=== PATIENT | female | born 1965 | race Caucasian/White ===

== ENCOUNTER 2016-11-06 16:21 | Emergency (ER) | payer MEDICAID ==
[2016-11-06 16:28] VITALS: BP 159/84; PULSE 107; RESP 16; O2SAT 99
[2016-11-06 17:30] LABS: BASO % 0.2 % (0.0-2.0); EOS # 0.1 K/uL (0.0-0.7); EOS % 0.9 % (0.0-4.0); HEMATOCRIT 36.9 % (34.0-47.0); LYMPH # 1.1 K/uL (1.0-4.3); LYMPH % 8.8 % (20.0-40.0); MEAN CELL VOLUME 76.9 fl (81.0-99.0); MEAN CORPUSCULAR HEMOGLOBIN 24.4 pg (27.0-31.0); MEAN CORPUSCULAR HGB CONC 31.7 g/dL (33.0-37.0); MEAN PLATELET VOLUME 7.8 fl (7.2-11.7); MONO # 0.7 K/uL (0.0-0.8); MONO % 5.9 % (0.0-10.0); NEUT # 10.6 K/uL (1.8-7.0); NEUT % 84.2 % (50.0-75.0); PLATELET COUNT 342 K/uL (130-400); WHITE BLOOD COUNT 12.6 K/uL (4.8-10.8)
[2016-11-06 17:42] LABS: ALB/GLOB RATIO 1.2 (1.0-2.1); ALKALINE PHOSPHATASE 79 U/L (38-126); ALT/SGPT 45 U/L (9-52); AST/SGOT 23 U/L (14-36); BILIRUBIN,TOTAL 0.4 mg/dl (0.2-1.3); BLOOD UREA NITROGEN 20 mg/dl (7-17); CALCIUM 8.9 mg/dL (8.4-10.2); CARBON DIOXIDE 21 mmol/L (22-30); CHLORIDE 106 mmol/L (98-107); GFR AFRICAN-AMERICAN > 60; GLUCOSE,RANDOM 140 mg/dL (65-105); MAGNESIUM 1.7 MG/DL (1.6-2.3); PHOSPHOROUS 3.5 mg/dl (2.5-4.5); POTASSIUM 3.8 MMOL/L (3.6-5.0); SODIUM 139 mmol/l (132-148); TOTAL PROTEIN 7.4 G/DL (6.3-8.2); URIC ACID 3.5 mg/Dl (2.2-7.5)
--- NOTE | 2016-11-06 17:46 | ED PDOC ---
Upper Extremity Pain/Injury Time Seen by Provider: 11/06/16 16:31 Chief Complaint (Nursing): Upper Extremity Problem/Injury Chief Complaint (Provider): Hand swelling History Per: Patient History/Exam Limitations: no limitations Onset/Duration Of Symptoms: Days Current Symptoms Are (Timing): Still Present Additional History Per: Patient Additional Complaint(s): The pt is a 51yo female, pmhx of 2x , gastritis, presents to the ED for evaluation of hand swelling for the past 5 days. Pt reports symptoms started with aching in right hand and also swelling. Pt reports she also felt malaise and fatigue since then. She reports this morning, noticing selling to left hand and left knee, prompting her visit to the ED. 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 She reports taking 800 mg Motrin for pain with minimal relief. She also reports a tactile fever and mild headache and jaw pain as well. Pt denies any other medical complaints. PCP: Dr. Alissa Barksdale Past Medical History Reviewed: Historical Data, Nursing Documentation, Vital Signs Vital Signs: Last Vital Signs Temp 99.0 F 11/06/16 16:25 Pulse 107 H 11/06/16 16:25 Resp 16 11/06/16 16:25 BP 159/84 H 11/06/16 16:25 Pulse Ox 99 11/06/16 16:25 - Medical History PMH: Gastritis - Surgical History Surgical History: (2) - Family History Family History: States: Unknown Family Hx - Social History Current smoker - smoking cessation education provided: No Alcohol: None Drugs: Denies - Immunization History Hx Tetanus Toxoid Vaccination: Yes Hx Influenza Vaccination: Yes Hx Pneumococcal Vaccination: Yes - Home Medications Home Medications: Ambulatory Orders Medication Instructions Recorded Ciprofloxacin [Cipro] 1 tab PO BID #14 tab 07/18/15 Ibuprofen [Motrin Tab] 2 tab PO ONCE 07/18/15 Omeprazole 1 tab PO DAILY 07/18/15 Phenobarb/Hyoscy/Atropine/Scop 16.2 mg PO Q6 #12 tablet 07/18/15 [ Tablet] Acetaminophen [Tylenol Extra 1,000 mg PO Q6 PRN #100 tablet 11/06/16 Strength] Prednisone 50 mg PO DAILY #4 tablet 11/06/16 traMADol [Ultram] 50 mg PO TID PRN #15 tab 11/06/16 - Allergies Allergies/Adverse Reactions: Allergies Allergy/AdvReac Type Severity Reaction Status Date / Time No Known Allergies Allergy Unverified 05/03/13 05:22 Review of Systems ROS Statement: Except As Marked, All Systems Reviewed And Found Negative Constitutional: Positive for: Fever (tactile) ENT: Positive for: Other (jaw pain) Musculoskeletal: Positive for: Hand Pain (hand swelling), Other (left knee swelling) Neurological: Positive for: Headache Physical Exam - Reviewed Nursing Documentation Reviewed: Yes Vital Signs Reviewed: Yes - Physical Exam Appears: Positive for: Non-toxic, In Acute Distress (mild painful) Head Exam: Positive for: ATRAUMATIC, NORMOCEPHALIC Skin: Positive for: Warm, Dry Eye Exam: Positive for: EOMI, PERRL ENT: Negative for: Pharyngeal Erythema, Tonsillar Exudate Neck: Positive for: Painless ROM, Supple Cardiovascular/Chest: Positive for: Regular Rate, Rhythm, Chest Non Tender. Negative for: Murmur Respiratory: Positive for: Normal Breath Sounds. Negative for: Wheezing Gastrointestinal/Abdominal: Positive for: Soft. Negative for: Tenderness, Mass , Distended, Guarding Back: Positive for: Normal Inspection. Negative for: Vertebral Tenderness Extremity: Positive for: Swelling (RIGHT hand diffuse swelling mild erythema and tenderness, LEFT hand with similar but more subtle edema and erythema, bilateral knees wnl) Lymphatic: Negative for: Adenopathy Neurologic/Psych: Positive for: Alert. Negative for: Motor/Sensory Deficits - Laboratory Results Result Diagrams: 11/06/16 16:30 11/06/16 16:30 - ECG O2 Sat by Pulse Oximetry: 99 (RA) Pulse Ox Interpretation: Normal Medical Decision Making Medical Decision Making: Time: 1645 Impression: Polyarticular arthritis Differential: Viral syndrome, gout, rheumatoid arthritis, inflammatory arthritis Plan: -- Labs -- Rheumatoid Factor -- Tylenol 975 mg PO --Reassess Leukocytosis. No emergently significant lab abnormalities DW pt findings and plan of care. Concern for chronic rheumotologic disease discussed. Advised rheum follow up. Rx prednisone, tylenol, tramadol Scribe Attestation: Documented by Tanika Taylor acting as a scribe for Vanessa Vargas MD Provider Scribe Attestation: All medical record entries made by the Scribe were at my direction and personally dictated by me. I have reviewed the chart and agree that the record accurately reflects my personal performance of the history, physical exam, medical decision making, and the department course for this patient. I have also personally directed, reviewed, and agree with the discharge instructions and disposition. Disposition - Clinical Impression Clinical Impression: Inflammatory arthritis Counseled Patient/Family Regarding: Studies Performed, Diagnosis, Need For Followup, Rx Given - Disposition Referrals: [facility] [Outside] Alissa Barksdale [Staff Provider] - 11/08/16 Hiram Hinton MD [Staff Provider] - Disposition: Routine/Home Disposition Time: 18:00 Condition: STABLE Additional Instructions: NECESITA VISITAR CABRAL DOCTOR EN 24-48 HORAS A CHEQAR DE NUEVO. LLAME A LA OFICINA DE DR HINTON EN 7-10 OWUSU POR MAS EVALUACIONES. MARIA E MEDICINAS A RECETO Prescriptions: Acetaminophen [Tylenol Extra Strength] 1,000 mg PO Q6 PRN #100 tablet PRN Reason: Pain, Moderate (4-7) Prednisone 50 mg PO DAILY #4 tablet traMADol [Ultram] 50 mg PO TID PRN #15 tab PRN Reason: SEVERE PAIN ONLY Instructions: Arthritis (ED) Forms: [facility] (Malay) Print Language: WELSH
[2016-11-06 18:10] LABS: THYROID STIMULATING HORMONE 2.17 mIU/ML (0.46-4.68)
[2016-11-06 19:03] VITALS: TEMP 98.2
[2016-11-06 19:16] LABS: EOSINOPHIL 1 % (0-7); MYELOCYTE 1 % (0-0); NEUTROPHIL 85 % (42-75); TOTAL CELLS COUNTED 100
[2016-11-06 19:18] LABS: LARGE PLATELETS PRESENT; STOMATOCYTES SLIGHT
== END 2016-11-06 19:08 | disposition home or self-care (01) ==
LOC: H.ER 16:21
DX: M06.4 Inflammatory polyarthropathy (principal)
CPT/HCPCS: 80053; 81025; 83520; 83605; 83735; 83880; 84100; 84443; 84550; 85025; 86308; 87040; 96374; 99283; J2930

== ENCOUNTER 2017-04-30 10:26 | Emergency (ER) | payer MEDICAID ==
[2017-04-30 10:32] VITALS: BMI 30.4
[2017-04-30 10:33] VITALS: BP 152/97; PULSE 82; RESP 16; TEMP 98.5
[2017-04-30 10:38] VITALS: O2SAT 98
--- NOTE | 2017-04-30 11:17 | ED PDOC ---
HPI: Back Time Seen by Provider: 04/30/17 10:36 Chief Complaint (Nursing): Back Pain Chief Complaint (Provider): Back Pain History Per: Patient History/Exam Limitations: no limitations Onset/Duration Of Symptoms: Other (x 2 weeks) Current Symptoms Are (Timing): Still Present Exacerbating Factor(s): Other (Walking, Applying pressure) Additional Complaint(s): Ms. Collins is a 52 year old female who presents to the emergency department complaining of constant back pain for 2 weeks. Patient reports pain worsens when applying pressure to back and when walking. Denies pain when lifting. 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 Patient states 2 years ago she had the same complaint where she went to [facility] and "did not find anything". Reports she took Advil last Sunday with minor relief. PMD: No Provider Past Medical History Reviewed: Historical Data, Nursing Documentation, Vital Signs Vital Signs: Last Vital Signs Temp 98.5 F 04/30/17 10:31 Pulse 82 04/30/17 10:31 Resp 16 04/30/17 10:31 BP 152/97 H 04/30/17 10:31 Pulse Ox 98 04/30/17 10:36 - Medical History PMH: No Chronic Diseases - Surgical History Surgical History: (2) - Family History Family History: States: Unknown Family Hx - Immunization History Hx Tetanus Toxoid Vaccination: Yes Hx Influenza Vaccination: Yes Hx Pneumococcal Vaccination: Yes - Home Medications Home Medications: Ambulatory Orders Medication Instructions Recorded Ciprofloxacin [Cipro] 1 tab PO BID #14 tab 07/18/15 Ibuprofen [Motrin Tab] 2 tab PO ONCE 07/18/15 Omeprazole 1 tab PO DAILY 07/18/15 Phenobarb/Hyoscy/Atropine/Scop 16.2 mg PO Q6 #12 tablet 07/18/15 [ Tablet] Acetaminophen [Tylenol Extra 1,000 mg PO Q6 PRN #100 tablet 11/06/16 Strength] Prednisone 50 mg PO DAILY #4 tablet 11/06/16 traMADol [Ultram] 50 mg PO TID PRN #15 tab 11/06/16 Cyclobenzaprine [Cyclobenzaprine 10 mg PO TID PRN #15 tab 04/30/17 HCl] Naproxen [Naprosyn] 500 mg PO BID PRN #15 tablet 04/30/17 - Allergies Allergies/Adverse Reactions: Allergies Allergy/AdvReac Type Severity Reaction Status Date / Time No Known Allergies Allergy Verified 04/30/17 10:36 Review of Systems ROS Statement: Except As Marked, All Systems Reviewed And Found Negative Physical Exam - Reviewed Nursing Documentation Reviewed: Yes Vital Signs Reviewed: Yes - Physical Exam Appears: Positive for: Well, No Acute Distress Skin: Positive for: Normal Color, Warm, Dry Back: Negative for: Normal Inspection ((+): Midline Tenderness, Bilateral lumbar paraspinal tenderness (-): Deformity, point tenderness), L CVA Tenderness, R CVA Tenderness Extremity: Positive for: Normal ROM Neurologic/Psych: Positive for: Alert, dry end operator II-XII, Oriented (x 3). Negative for : Motor/Sensory Deficits - ECG O2 Sat by Pulse Oximetry: 98 (RA) Pulse Ox Interpretation: Normal Medical Decision Making Medical Decision Making: Time: 11:04 Plan: - Lumbar Spine Complete X-Ray - Flexeril - Naproxen 500 mg PO STAT Accession No. 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 HISTORY: Low back pain COMPARISON: No prior. FINDINGS: BONES: No acute compression fractures nor retropulsed fragments. Minor chronic anterior stature loss of the T11, T12 and to a lesser degree L1 segments felt to be degenerative in origin. DISC SPACES: Disc space heights are relatively maintained. Small marginal anterior osteophyte formation seen at several levels. Facet joints appear slightly overgrown L5-S1 and L4-L5 levels. OTHER FINDINGS: None. IMPRESSION: No acute fractures. Minor chronic anterior stature loss T11, T12 and to a lesser degree L1 segments felt to be degenerative in origin. Minimal degenerative spondylosis. Scribe Attestation: Documented by Eleuterio Lai, acting as a scribe for Hilda Martinez MD. Provider Scribe Attestation: All medical record entries made by the Scribe were at my direction and personally dictated by me. I have reviewed the chart and agree that the record accurately reflects my personal performance of the history, physical exam, medical decision making, and the department course for this patient. I have also personally directed, reviewed, and agree with the discharge instructions and disposition. Disposition - Clinical Impression Clinical Impression: Low back pain - Disposition Referrals: [facility] [Outside] [facility] [Outside] Disposition: Routine/Home Disposition Time: 13:44 Condition: IMPROVED Prescriptions: Cyclobenzaprine [Cyclobenzaprine HCl] 10 mg PO TID PRN #15 tab PRN Reason: Pain Naproxen [Naprosyn] 500 mg PO BID PRN #15 tablet PRN Reason: Pain, Moderate (4-7) Instructions: Low Back Pain in Adults Forms: [employer] (Faroese), [facility] ED School/Work Excuse Print Language: GRENADIAN
[2017-04-30] MEDS: Naproxen 500 MG TAB PO STA (11:26)
--- NOTE | 2017-04-30 12:29 | RAD ---
PROCEDURE: Radiographs of the Lumbar Spine. HISTORY: Low back pain COMPARISON: No prior. FINDINGS: BONES: No acute compression fractures nor retropulsed fragments. Minor chronic anterior stature loss of the T11, T12 and to a lesser degree L1 segments felt to be degenerative in origin. DISC SPACES: Disc space heights are relatively maintained. Small marginal anterior osteophyte formation seen at several levels. Facet joints appear slightly overgrown L5-S1 and L4-L5 levels. OTHER FINDINGS: None. IMPRESSION: No acute fractures. Minor chronic anterior stature loss T11, T12 and to a lesser degree L1 segments felt to be degenerative in origin. Minimal degenerative spondylosis.
== END 2017-04-30 14:02 | disposition home or self-care (01) ==
LOC: H.ER 10:26
DX: M54.9 Dorsalgia, unspecified (principal)

== ENCOUNTER 2018-04-10 09:48 | Emergency (ER) | payer MEDICAID ==
[2018-04-10 09:49] VITALS: BMI 30.4
[2018-04-10 09:57] VITALS: BP 136/83; PULSE 84; RESP 17; TEMP 98; O2SAT 99
== END 2018-04-10 10:43 | disposition home or self-care (01) ==
LOC: H.ER 09:48
DX: Z02.89 Encounter for other administrative examinations (principal)